=== PATIENT | female | born 1945 | race Asian ===

== ENCOUNTER 2018-03-13 18:14 | Emergency (ER) | payer MEDICARE, OTHER ==
[2018-03-13] MEDS: DIPHTH/TET/ACEL PERTUSS (ADULT) 0.5 ML VIAL IM* (19:07)
[2018-03-13] MEDS: IPRATROPIUM (NEB) 0.5 MG/2.5 ML AMP HHN (19:50)
[2018-03-13] MEDS: LEVALBUTEROL (NEB) 1.25 MG/0.5 ML AMP HHN (19:50)
[2018-03-13] MEDS: IBUPROFEN 600 MG TAB PO (20:44)
[2018-03-13] MEDS: ACETAMINOPHEN 325 MG TAB PO (21:00)
== END 2018-03-13 22:02 | disposition home or self-care (01) ==
LOC: E/R 18:14
DX: S21.109A Unspecified open wound of unspecified front wall of thorax without penetration into thoracic cavity, initial encounter (principal); E11.9 Type 2 diabetes mellitus without complications; I10 Essential (primary) hypertension; R51 Headache; V47.1XXA Car passenger injured in collision with fixed or stationary object in nontraffic accident, initial encounter; Z23 Encounter for immunization
CPT/HCPCS: 70450; 71045; 90471; 90715; 94664; 99284-25